=== PATIENT | male | born 1940 | race Caucasian/White ===

== ENCOUNTER 2020-06-09 18:31 | Observation (INO) | payer MEDICARE, SELFPAY ==
[2020-06-09 18:46] VITALS: BP 128/73; PULSE 95; RESP 18; TEMP 35.9; O2SAT 98; BMI 24.4
--- NOTE | 2020-06-09 19:07 | DI.CT.S_ITS ---
PROCEDURE: CT ABDOMEN PELVIS W CON INDICATIONS: Abdominal pain, eval for obstruction TECHNIQUE: After the administration of intravenous contrast, 5 mm thick sections acquired from the diaphragm to the symphysis. 5 mm coronal and sagittal reformats were acquired. For radiation dose reduction, the following was used: automated exposure control, adjustment of mA and/or kV according to patient size. COMPARISON: None. FINDINGS: Image quality: Excellent. ABDOMEN: Lung bases: Lung bases are clear. Heart size is normal. Solid organs: Liver is normal in size and enhancement. Gallbladder has been surgically resected Biliary system is non dilated. Pancreas enhances normally. Spleen is normal in size and enhancement. No adrenal nodules. Kidneys demonstrate normal size and enhancement, without hydronephrosis. Peritoneum and bowel: Colonic bowel loops demonstrate normal wall thickness and caliber. No free fluid or air. Note is made of small bowel dilatation over the mid and lower abdomen/pelvis. The small bowel loops measure up to 3.5 cm in diameter. An exact etiology is not identified. Nodes and vessels: No retroperitoneal or mesenteric adenopathy by size criteria. Aorta and inferior vena cava are normal in size. Miscellaneous: No ventral hernias. PELVIS: Genitourinary: Bladder wall thickness is normal. Miscellaneous: No inguinal hernias or adenopathy. Bones: No suspicious bony lesions. No vertebral body compression fractures. IMPRESSION: Small-bowel restriction pattern, with 3.5 cm dilated small bowel loops over the mid abdomen and pelvis, without etiology identified. Prior cholecystectomy. Postoperative adhesion is a potential etiology of this appearance. No mass or intussusception or acute inflammatory change is found. Dictated by: Justino Godoy M.D. on 06/09/2020 at 20:05 Approved by: Justino Godoy M.D. on 06/09/2020 at 20:07
--- NOTE | 2020-06-09 19:12 | ED_ITS ---
HPI - General Adult General Chief complaint: Abdominal Pain Stated complaint: SEVERE STOMACH PAIN NO BOWEL MOVEMENT 2 DAY Time Seen by Provider: 06/09/20 18:58 Source: patient Mode of arrival: Ambulatory Limitations: no limitations History of Present Illness HPI narrative: 79-year-old male who was sent to the emergency department for concerns of a small-bowel obstruction. Patient has had his prostate removed and also his gallbladder removed in the past. He denies any fevers but has had a couple days of constipation, abdominal distention, abdominal pain and vomiting. He also has a history of migraines. He currently has a headache which he states is consistent with his history of migraines. He has not been able to take his medications because he has been vomiting. Went to his primary doctor today who sent him to the emergency department for evaluation. Related Data Home Medications Medication Instructions Recorded Confirmed VITAMIN D (Vitamin D3) PO QDAY #0 09/16/17 ibuprofen [Advil Liqui-Gel] 200 mg PO PRN #0 09/16/17 levothyroxine [Synthroid] 0.075 mg PO QAM #0 09/16/17 sumatriptan succinate [Imitrex] 25 mg PRN #0 09/16/17 Allergies Allergy/AdvReac Type Severity Reaction Status Date / Time acetaminophen [From PERCOCET] Allergy Unknown migraine Verified 06/09/20 19:25 oxycodone [From PERCOCET] Allergy Unknown migraine Verified 06/09/20 19:25 FOOD COLORINGS Allergy Unknown MIGRAINES. Uncoded 06/09/20 19:25 MSG Allergy Unknown MIGRAINE Uncoded 06/09/20 19:25 Review of Systems Constitutional Constitutional: Denies fever(s) and Reports headache(s) ENT Ears, Nose, Mouth, and Throat: Reports headache(s) Cardiovascular Cardiovascular: Denies chest pain and Denies dyspnea Respiratory Respiratory: Denies dyspnea Gastrointestinal Gastrointestinal: Reports abdominal pain, Reports bloating, Reports constipation, Reports nausea and Reports vomiting Genitourinary Genitourinary: Denies dysuria Genitourinary: Denies dysuria Musculoskeletal Musculoskeletal: Denies arthralgias and Denies myalgias Integumentary/Breasts Skin/Breast: Denies lesions and Denies rash Neurologic Neurologic: Denies behavioral changes and Reports headache(s) Psychiatric Psychiatric: Denies behavioral changes Hematologic/Lymphatic On Anticoagulants: No Allergic/Immunologic Allergic/Immunologic: Denies urticaria Patient History Medical History Migraine Surgical History H/O prostatectomy History of cholecystectomy Social History household members: spouse Smoking Status: Never smoker Smoking Status: Never smoker alcohol intake frequency: 0-2 drinks per day Substance Use Type: does not use Exam Initial Vital Signs Initial Vital Signs: Vital Signs Temperature 96.7 F L 06/09/20 18:46 Pulse Rate 95 H 06/09/20 18:46 Respiratory Rate 18 06/09/20 18:46 Blood Pressure 128/73 06/09/20 18:46 Pulse Oximetry 98 06/09/20 18:46 Const General: cooperative and comfortable Limitations: mental status not altered HENMT Head: normal to inspection and normocephalic Resp Effort & Inspection: normal respiratory effort Auscultation: clear to auscultation bilaterally Cardio Rate: regular rate Rhythm: regular rhythm GI Inspection: distended Palpation: soft, No firm, No rigid and tender (Generalized) Skin Lesions: no lesions Rashes: no rashes Neuro General: patient alert, patient awake and patient oriented x3 Cognition: normal cognition Speech: speech normal Sensory Exam: no sensory deficits noted Extrem General: normal to inspection and capillary refill normal Psych Appearance: grossly normal and well kempt Scores GCS [place] coma scale eye opening: Spontaneous Efren coma scale verbal response: Orientated Efren coma scale motor response: Obey commands [place] coma scale total score: 15 Course Orders Ordered: ED Orders 06/09/20 19:07 CT abdomen pelvis w con Stat 06/09/20 19:15 Complete Blood Count AUTO DIFF Stat Comprehensive Metabolic Panel Stat Lactate (Lactic Acid) Stat Lipase Stat Partial Thromboplastin Time Stat Prothrombin Time INR Stat 06/09/20 20:40 COVID19 Stat 06/09/20 20:43 Consult to General Surgery Urgent 06/10/20 06:00 Complete Blood Count AUTO DIFF Stat Comprehensive Metabolic Panel Stat Lipase Stat Sodium Chloride (Normal Saline 0.9%) 1,000 mls @ 125 mls/hr IV CONT VIVI Last Admin: 06/09/20 21:38 Dose: 125 mls/hr Documented by: KKNOTT Morphine Sulfate (Morphine 2 Mg/Ml Inj) 2 mg IV Q4HR PRN PRN Reason: pain Ondansetron HCl (Ondansetron 4 Mg/2 Ml Inj) 4 mg IV Q4HR PRN PRN Reason: Nausea And Vomiting Sumatriptan Succinate (Sumatriptan 6 Mg/0.5 Ml Vial) 6 mg SUBCUT PRN PRN PRN Reason: Headache Discontinued Medications Sodium Chloride (Normal Saline 0.9%) 1,000 mls @ 1,000 mls/hr IV BOLUS ONE Stop: 06/09/20 20:06 Last Infusion: 06/09/20 21:23 Dose: 0 mls/hr Documented by: Admin: 06/09/20 19:34 Dose: 1,000 mls/hr Documented by: DANIEL Morphine Sulfate (Morphine 2 Mg/Ml Inj) 2 mg IV NOW ONE Stop: 06/09/20 19:12 Last Admin: 06/09/20 19:34 Dose: 2 mg Documented by: DANIEL Ondansetron HCl (Ondansetron 4 Mg/2 Ml Inj) 4 mg IV NOW ONE Stop: 06/09/20 19:30 Last Admin: 06/09/20 19:34 Dose: 4 mg Documented by: DANIEL Sumatriptan Succinate (Sumatriptan 6 Mg/0.5 Ml Vial) 6 mg SUBCUT NOW ONE Stop: 06/09/20 20:39 Last Admin: 06/09/20 20:56 Dose: 6 mg Documented by: DANIEL Vital Signs Vital signs: Vital Signs - 8 hr 06/09/20 18:46 06/09/20 19:50 06/09/20 20:00 Temperature 96.7 F L Pulse Rate 95 H 82 77 Respiratory Rate 18 17 16 Blood Pressure 128/73 135/72 129/73 Pulse Oximetry 98 98 96 06/09/20 20:30 Temperature Pulse Rate 76 Respiratory Rate 16 Blood Pressure 122/68 Pulse Oximetry 97 Medical Decision Making Lab Data Lab results reviewed: Yes I reviewed the patient's lab results. Result diagrams: 06/09/20 19:15 06/09/20 19:15 Labs: Lab Results 06/09/20 06/09/20 06/09/20 Range/Units 19:15 19:15 19:15 WBC 8.4 (4.5-11.0) X10^3/uL RBC 5.29 (4.5-5.9) X10^6/uL Hgb 16.1 (13.5-17.5) g/dL Hct 48.0 (41-53) % MCV 90.8 (80-100) fL MCH 30.4 (26-34) PG MCHC 33.5 (30-36) % RDW 13.7 (11.6-14.8) % Plt Count 264 (150-400) X10^3/uL Neut % (Auto) 83.3 H (50-75) % Lymph % (Auto) 5.1 L (25-40) % [place] % (Auto) 11.2 (3-14) % Eos % (Auto) 0.2 L (2-4) % Baso % (Auto) 0.2 (0-2) % Neut # (Auto) 7000 (3761-5161) /uL Lymph # (Auto) 400 L (2376-6444) /uL [place] # (Auto) 900 (0-900) /uL Eos # (Auto) 0 (0-450) /uL Baso # (Auto) 0 (0-100) /uL PT 11.3 (10.1-12.7) SECONDS INR 1.0 (0.9-1.3) APTT 27 (26.4-36.2) SECONDS Sodium 135 L (137-145) mmol/L Potassium 4.0 (3.4-5.1) mmol/L Chloride 96 L (98-107) mmol/L Carbon Dioxide 34 H (22-32) mmol/L BUN 20 (9-20) mg/dL Creatinine 1.25 (0.66-1.25) mg/dL Estimated GFR 55.6 L (>60) mL/min BUN/Creatinine Ratio 16.0 (6-22) Glucose 130 H (80-110) mg/dL Lactate (0.7-2.1) mmol/L Calcium 10.3 H (8.4-10.2) mg/dL Total Bilirubin 1.0 (0.2-1.3) mg/dL AST 22 (17-59) IU/L ALT 17 (<50) IU/L Alkaline Phosphatase 66 (38-126) U/L Total Protein 7.5 (6.3-8.2) g/dL Albumin 4.3 (3.5-5.0) g/dL Globulin 3.2 (1.7-4.1) g/dL Albumin/Globulin Ratio 1.3 (1.0-2.8) Lipase 67 (23-300) U/L SARS-CoV-2 (PCR) (Negative) 06/09/20 06/09/20 Range/Units 19:15 20:40 WBC (4.5-11.0) X10^3/uL RBC (4.5-5.9) X10^6/uL Hgb (13.5-17.5) g/dL Hct (41-53) % MCV (80-100) fL MCH (26-34) PG MCHC (30-36) % RDW (11.6-14.8) % Plt Count (150-400) X10^3/uL Neut % (Auto) (50-75) % Lymph % (Auto) (25-40) % [place] % (Auto) (3-14) % Eos % (Auto) (2-4) % Baso % (Auto) (0-2) % Neut # (Auto) (4366-1074) /uL Lymph # (Auto) (7843-1490) /uL [place] # (Auto) (0-900) /uL Eos # (Auto) (0-450) /uL Baso # (Auto) (0-100) /uL PT (10.1-12.7) SECONDS INR (0.9-1.3) APTT (26.4-36.2) SECONDS Sodium (137-145) mmol/L Potassium (3.4-5.1) mmol/L Chloride (98-107) mmol/L Carbon Dioxide (22-32) mmol/L BUN (9-20) mg/dL Creatinine (0.66-1.25) mg/dL Estimated GFR (>60) mL/min BUN/Creatinine Ratio (6-22) Glucose (80-110) mg/dL Lactate 1.7 (0.7-2.1) mmol/L Calcium (8.4-10.2) mg/dL Total Bilirubin (0.2-1.3) mg/dL AST (17-59) IU/L ALT (<50) IU/L Alkaline Phosphatase (38-126) U/L Total Protein (6.3-8.2) g/dL Albumin (3.5-5.0) g/dL Globulin (1.7-4.1) g/dL Albumin/Globulin Ratio (1.0-2.8) Lipase (23-300) U/L SARS-CoV-2 (PCR) Negative (Negative) Imaging Data CT scan - abdomen/pelvis: Radiologist's Impression: [address] [id number] Scan ReportSigned Patient: Navarro Riley GMR#: [id number]: [id number]:[id number]/Sex: 79 / MDate of Service: 06/09/20Loc: EDAccession Number: [id number] Procedure: CT abdomen pelvis w con Ordering Provider: Renato Beck D.O. PROCEDURE: CT ABDOMEN PELVIS W CON INDICATIONS: Abdominal pain, eval for obstruction TECHNIQUE: After the administration of intravenous contrast, 5 mm thick sections acquired from the diaphragm to the symphysis. 5 mm coronal and sagittal reformats were acquired. For radiation dose reduction, the following was used: automated exposure control, adjustment of mA and/or kV according to patient size. COMPARISON: None. FINDINGS: Image quality: Excellent. ABDOMEN: Lung bases: Lung bases are clear. Heart size is normal. Solid organs: Liver is normal in size and enhancement. Gallbladder has been surgically resected Biliary system is non dilated. Pancreas enhances normally. Spleen is normal in size and enhancement. No adrenal nodules. Kidneys demonstrate normal size and enhancement, without hydronephrosis. Peritoneum and bowel: Colonic bowel loops demonstrate normal wall thickness and caliber. No free fluid or air. Note is made of small bowel dilatation over the mid and lower abdomen/pelvis. The small bowel loops measure up to 3.5 cm in diameter. An exact etiology is not identified. Nodes and vessels: No retroperitoneal or mesenteric adenopathy by size criteria. Aorta and inferior vena cava are normal in size. Miscellaneous: No ventral hernias. PELVIS: Genitourinary: Bladder wall thickness is normal. Miscellaneous: No inguinal hernias or adenopathy. Bones: No suspicious bony lesions. No vertebral body compression fractures. IMPRESSION: Small-bowel restriction pattern, with 3.5 cm dilated small bowel loops over the mid abdomen and pelvis, without etiology identified. Prior cholecystectomy. Postoperative adhesion is a potential etiology of this appearance. No mass or intussusception or acute inflammatory change is found. Dictated by: Justino Godoy M.D. on 06/09/2020 at 20:05 Approved by: Justino Godoy M.D. on 06/09/2020 at 20:07 [facility] Narrative Medical decision making narrative: CT scan concerning for small bowel obstruction. Patient denied the need for any nausea medication. We will hold on an NG to for now. Will also treat his headache with Imitrex. I did discuss the case with Dr. Lafleur who agrees to admit the patient for further evaluation and treatment. Discussed the diagnosis with the patient and his who is at bedside. They expressed understanding and agreement. Discharge Plan Departure Patient Disposition: Admitted As Inpatient Clinical Impression: SBO (small bowel obstruction) Admit Date/Time: 06/09/20 20:46 Admit Provider: Jhon Lafleur
[2020-06-09 19:18] LABS: Add Manual Diff / Slide Review NO; Basophils Absolute Auto 0 /uL (0-100); Basophils Percent Auto 0.2 % (0-2); Eosinophils Absolute Auto 0 /uL (0-450); Eosinophils Percent Auto 0.2 % (2-4); Hemoglobin 16.1 g/dL (13.5-17.5); Lymphocytes Absolute Auto 400 /uL (1100-4500); Lymphocytes Percent Auto 5.1 % (25-40); Mean Corpuscular HGB Conc 33.5 % (30-36); Mean Corpuscular Hemoglobin 30.4 PG (26-34); Mean Corpuscular Volume 90.8 fL (80-100); Monocytes Absolute Auto 900 /uL (0-900); Monocytes Percent Auto 11.2 % (3-14); Neutrophils Absolute Auto 7000 /uL (1500-7000); Neutrophils Percent Auto 83.3 % (50-75); Platelet Count 264 X10^3/uL (150-400); Red Blood Cell Count 5.29 X10^6/uL (4.5-5.9); Red Cell Distribution Width 13.7 % (11.6-14.8); White Blood Cell Count 8.4 X10^3/uL (4.5-11.0)
[2020-06-09 19:26] LABS: Prothrombin Time 11.3 SECONDS (10.1-12.7)
[2020-06-09 19:29] LABS: PTT Partial Thromboplastin Tim 27 SECONDS (26.4-36.2)
[2020-06-09 19:31] LABS: Alanine Aminotransferase 17 IU/L (<50); Albumin 4.3 g/dL (3.5-5.0); Albumin Globulin Ratio 1.3 (1.0-2.8); Alkaline Phosphatase 66 U/L (38-126); Aspartate Aminotransferase 22 IU/L (17-59); Blood Urea Nitrogen 20 mg/dL (9-20); Calcium 10.3 mg/dL (8.4-10.2); Carbon Dioxide 34 mmol/L (22-32); Chloride 96 mmol/L (98-107); Estimated Glomerular Filt Rate 55.6 mL/min (>60); Globulin 3.2 g/dL (1.7-4.1); Glucose 130 mg/dL (80-110); HEMOLYSIS < 15 (0-50); Lipase 67 U/L (23-300); Sodium 135 mmol/L (137-145); Total Protein 7.5 g/dL (6.3-8.2)
[2020-06-09] MEDS: ONDANSETRON 4 MG/2 ML INJ IV (19:34)
[2020-06-09] MEDS: MORPHINE 2 MG/ML INJ IV (19:34)
[2020-06-09] MEDS: SODIUM CHLORIDE 0.9% 1,000 ML 1000 ML IV (19:34)
[2020-06-09 19:50] VITALS: BP 135/72; PULSE 82; RESP 17; O2SAT 98
[2020-06-09 20:00] VITALS: BP 129/73; PULSE 77; RESP 16; O2SAT 96
[2020-06-09 20:30] VITALS: BP 122/68; PULSE 76; RESP 16; O2SAT 97
[2020-06-09] MEDS: SUMAtriptan 6 MG/0.5 ML VIAL SUBCUT (20:56)
[2020-06-09 20:59] LABS: COVID19 -Nasal RAPID Negative (Negative)
[2020-06-09 21:08] VITALS: BP 128/71; PULSE 79; RESP 16; O2SAT 98
[2020-06-09 21:14] LABS: Lactate (Lactic Acid) 1.7 mmol/L (0.7-2.1)
[2020-06-09 21:30] VITALS: BMI 24.4
[2020-06-09] MEDS: SODIUM CHLORIDE 0.9% 1,000 ML 125 ML IV (21:38)
[2020-06-10] VITALS: BP 133/93; PULSE 92; RESP 16; TEMP 36.7; O2SAT 97
[2020-06-10] MEDS: SUMAtriptan 6 MG/0.5 ML VIAL SUBCUT ×2 (01:45→12:15)
[2020-06-10 05:00] VITALS: BP 112/67; PULSE 79; RESP 16; TEMP 35.9; O2SAT 93
[2020-06-10] MEDS: SODIUM CHLORIDE 0.9% 1,000 ML 125 ML IV (05:02)
--- NOTE | 2020-06-10 05:06 | PC.NURSE ---
Pt reports that his abdominal pain is gone. Pt is requesting food and would like to be able to sip water/ice chips, he was told that this would be requested from his doctor in the AM. Pt is requesting a lipid panel be added on to this morning labs - will pass on to AM RN.
[2020-06-10 05:38] LABS: Add Manual Diff / Slide Review NO; Basophils Absolute Auto 0 /uL (0-100); Basophils Percent Auto 0.4 % (0-2); Eosinophils Absolute Auto 100 /uL (0-450); Eosinophils Percent Auto 0.9 % (2-4); Hematocrit 39.6 % (41-53); Hemoglobin 13.1 g/dL (13.5-17.5); Lymphocytes Absolute Auto 700 /uL (1100-4500); Lymphocytes Percent Auto 12.6 % (25-40); Mean Corpuscular Hemoglobin 30.2 PG (26-34); Mean Corpuscular Volume 91.4 fL (80-100); Monocytes Absolute Auto 700 /uL (0-900); Monocytes Percent Auto 11.4 % (3-14); Neutrophils Absolute Auto 4400 /uL (1500-7000); Neutrophils Percent Auto 74.7 % (50-75); Platelet Count 204 X10^3/uL (150-400); Red Blood Cell Count 4.33 X10^6/uL (4.5-5.9); White Blood Cell Count 5.9 X10^3/uL (4.5-11.0)
[2020-06-10 05:48] LABS: Alanine Aminotransferase 11 IU/L (<50); Albumin 3.4 g/dL (3.5-5.0); Albumin Globulin Ratio 1.5 (1.0-2.8); Alkaline Phosphatase 48 U/L (38-126); Aspartate Aminotransferase 18 IU/L (17-59); BUN Creatinine Ratio 17.7 (6-22); Bilirubin Total 0.9 mg/dL (0.2-1.3); Blood Urea Nitrogen 20 mg/dL (9-20); Calcium 8.7 mg/dL (8.4-10.2); Carbon Dioxide 32 mmol/L (22-32); Chloride 104 mmol/L (98-107); Estimated Glomerular Filt Rate > 60.0 mL/min (>60); Globulin 2.3 g/dL (1.7-4.1); Glucose 111 mg/dL (80-110); HEMOLYSIS < 15 (0-50); Lipase 100 U/L (23-300); Potassium 4.3 mmol/L (3.4-5.1); Sodium 137 mmol/L (137-145); Total Protein 5.7 g/dL (6.3-8.2)
[2020-06-10 07:50] VITALS: BP 109/65; PULSE 74; RESP 18; TEMP 36.3; O2SAT 92
[2020-06-10 08:31] VITALS: BP 92/52; PULSE 78; RESP 16; TEMP 36.9; O2SAT 93
--- NOTE | 2020-06-10 08:32 | DI.RAD.S_ITS ---
PROCEDURE: FL SMALL BOWEL FOLLOW THROUGH INDICATIONS: small bowel obstruction. Perform with gastrografin COMPARISON: None. FINDINGS: KUB: Preprocedural purchaser automotive parts film demonstrates a normal bowel gas pattern. No suspicious abdominal calcifications. Visualized solid organ contours appear normal. No suspicious bony abnormalities. Scattered surgical clips. Small bowel: There is normal transit time of barium through the small bowel. Small bowel loops are diffusely prominent. Mucosal folds are smooth and of normal thickness. No strictures, intraluminal masses, or extrinsic mass effects are noted. Contrast reaches the rectal vault at the 1 hour 30 minutes time point. IMPRESSION: Normal transit of oral contrast material reaching the rectal vault at the 1 hour 30 minutes time point. Dictated by: Kvng Fritz M.D. on 06/10/2020 at 12:08 Approved by: Kvng Fritz M.D. on 06/10/2020 at 12:11
[2020-06-10] MEDS: ENOXAPARIN 40 MG/0.4 ML SYRINGE SUBCUT (09:06)
[2020-06-10] MEDS: ONDANSETRON 4 MG/2 ML INJ IV (09:06)
--- NOTE | 2020-06-10 09:42 | PC.NURSE ---
Assess- Patient is a&ox3, she states that she is having 6/10 pain, given 10mg of po oxycodone and seems to be helpful. Incision and dressing cdi. Patient denies any numbness or tingling of the extremities and is tolerating her breakfast well. She states that she mostly has pain when positioning and moving around in bed. Resting now.
--- NOTE | 2020-06-10 09:57 | P.HP_ITS ---
History of Present Illness History of Present Illness Date Patient Seen: 06/10/20 Time Patient Seen: 09:57 Chief complaint: SEVERE STOMACH PAIN NO BOWEL MOVEMENT 2 DAY Narrative: 79-year-old man seen in consultation for a small-bowel obstruction. History of prior abdominal surgery including cholecystectomy and prostatectomy. Over the past 2 days he has had multiple episodes of nausea and emesis associated with abdominal distension and lack of bowel movement. He is passing a very small amount of flatus. No prior previous episodes. No emesis since admission [address] abdomen pelvis performed with IV contrast only demonstrates small bowel dilation no free air. Patient History Medical History Hypothyroidism Migraine Surgical History H/O prostatectomy History of cholecystectomy Family & Social History Social History: household members spouse Safety & Behavioral: Feels Safe in Current Yes Environment Been Physically Hurt or No Threatened By a Person Suicidal Ideation Description None Suicide Plan Description No Plan Tobacco & Substance use: Smoking Status Never smoker alcohol intake frequency 0-2 drinks per day Substance Use Type does not use Meds Home Medications and Allergies Home Medications Medication Instructions Recorded Confirmed Type VITAMIN D (Vitamin D3) PO QDAY #0 09/16/17 History ibuprofen [Advil Liqui-Gel] 200 mg PO PRN #0 09/16/17 History levothyroxine [Synthroid] 0.075 mg PO QAM #0 09/16/17 History sumatriptan succinate [Imitrex] 25 mg PRN #0 09/16/17 History Allergies Allergy/AdvReac Type Severity Reaction Status Date / Time acetaminophen [From PERCOCET] Allergy Unknown migraine Verified 06/09/20 19:25 oxycodone [From PERCOCET] Allergy Unknown migraine Verified 06/09/20 19:25 FOOD COLORINGS Allergy Unknown MIGRAINES. Uncoded 06/09/20 19:25 MSG Allergy Unknown MIGRAINE Uncoded 06/09/20 19:25 Review of Systems Review of Systems ROS: Yes All systems reviewed with the patient and are negative except as otherwise documented Exam Vital Signs (past 8 hours): - 06/10/20 05:00 06/10/20 07:50 Temperature 96.6 F L 97.3 F L Pulse Rate 79 74 Respiratory Rate 16 18 Blood Pressure 112/67 109/65 Pulse Oximetry 93 92 Oxygen Delivery Method Room Air Oxygen Flow Rate 0 Narrative Exam Narrative: General-no acute distress, well nourished elderly man HEENT-moist mucous membranes, no scleral icterus Neck-supple, no lymphadenopathy Chest- non labored respirations, clear to auscultation bilaterally Cardiac-regular rate no peripheral edema Abdomen-soft, mildly distended lower midline scar Extremities-warm, well perfused Neurological-alert and oriented, no focal deficits Objective Labs Result Diagrams: 06/10/20 05:02 06/10/20 05:02 Labs: Laboratory Results - last 24 hr 06/09/20 06/09/20 06/09/20 19:15 19:15 19:15 WBC 8.4 RBC 5.29 Hgb 16.1 Hct 48.0 MCV 90.8 MCH 30.4 MCHC 33.5 RDW 13.7 Plt Count 264 Neut % (Auto) 83.3 H Lymph % (Auto) 5.1 L [place] % (Auto) 11.2 Eos % (Auto) 0.2 L Baso % (Auto) 0.2 Neut # (Auto) 7000 Lymph # (Auto) 400 L [place] # (Auto) 900 Eos # (Auto) 0 Baso # (Auto) 0 PT 11.3 INR 1.0 APTT 27 Sodium 135 L Potassium 4.0 Chloride 96 L Carbon Dioxide 34 H BUN 20 Creatinine 1.25 Estimated GFR 55.6 L BUN/Creatinine Ratio 16.0 Glucose 130 H Lactate Calcium 10.3 H Total Bilirubin 1.0 AST 22 ALT 17 Alkaline Phosphatase 66 Total Protein 7.5 Albumin 4.3 Globulin 3.2 Albumin/Globulin Ratio 1.3 Lipase 67 SARS-CoV-2 (PCR) 06/09/20 06/09/20 06/10/20 19:15 20:40 05:02 WBC 5.9 RBC 4.33 L Hgb 13.1 L Hct 39.6 L MCV 91.4 MCH 30.2 MCHC 33.0 RDW 14.0 Plt Count 204 Neut % (Auto) 74.7 Lymph % (Auto) 12.6 L [place] % (Auto) 11.4 Eos % (Auto) 0.9 L Baso % (Auto) 0.4 Neut # (Auto) 4400 Lymph # (Auto) 700 L [place] # (Auto) 700 Eos # (Auto) 100 Baso # (Auto) 0 PT INR APTT Sodium Potassium Chloride Carbon Dioxide BUN Creatinine Estimated GFR BUN/Creatinine Ratio Glucose Lactate 1.7 Calcium Total Bilirubin AST ALT Alkaline Phosphatase Total Protein Albumin Globulin Albumin/Globulin Ratio Lipase SARS-CoV-2 (PCR) Negative 06/10/20 05:02 WBC RBC Hgb Hct MCV MCH MCHC RDW Plt Count Neut % (Auto) Lymph % (Auto) [place] % (Auto) Eos % (Auto) Baso % (Auto) Neut # (Auto) Lymph # (Auto) [place] # (Auto) Eos # (Auto) Baso # (Auto) PT INR APTT Sodium 137 Potassium 4.3 Chloride 104 Carbon Dioxide 32 BUN 20 Creatinine 1.13 Estimated GFR > 60.0 BUN/Creatinine Ratio 17.7 Glucose 111 H Lactate Calcium 8.7 Total Bilirubin 0.9 AST 18 ALT 11 Alkaline Phosphatase 48 Total Protein 5.7 L Albumin 3.4 L Globulin 2.3 Albumin/Globulin Ratio 1.5 Lipase 100 SARS-CoV-2 (PCR) Assessment & Plan Assessment and plan (1) SBO (small bowel obstruction): Status: Acute Assessment & Plan narrative: 79-year-old man prior abdominal surgery admitted for a small-bowel obstruction. I reviewed his CT abdomen pelvis performed with IV contrast only demonstrates dilation of small bowel loops unable to discern if there is a transition point. I discussed with the patient that he most likely has an adhesive small bowel obstruction and these are generally managed conservatively initially. He has no indications at this time for surgical intervention. -NPO IV fluids -NG tube if persistent emesis -small-bowel follow-through -SCDs and Lovenox for VTE prophylaxis Quality VTE Deep Vein Thrombosis/Pulmonary Embolism Present on Admission: No
--- NOTE | 2020-06-10 11:59 | PC.NURSE ---
Patient denies nausea and states that he is in minimal pain. Given contrast for Small Bowel follow through and he has now had about 3 loose bowel movements with some small pieces of stool in them. He complains of a migraine, will offer him some medication. in room and visiting. Patients abdomen is slightly distended and bowel tones are hypoactive.
[2020-06-10 12:31] VITALS: BP 116/66; PULSE 72; RESP 15; TEMP 36.4; O2SAT 93
--- NOTE | 2020-06-10 13:54 | CM.DANOTE ---
DCP/Assessment: Reviewed chart. Patient is a 79yr old male admitted to [facility] with probable SBO. PCP is Dr. Jonatan Bird. Primary payor is 1)Medicare 2)[facility]. Met with patient explained CM/SW role. Patient in bed resting comfortably at time of visit. Patient's spouse/Angélica at bedside. Patient currently resides on [facility]. Patient and spouse report that patient I in ADL's. Current plan is for them to d/c home when medically stable. Patient will need priority boarding to return to [facility]. P: Home when stable. SANDOR Eden Discharge Planning/Care Management CM Discharge Assessment Start: 06/10/20 13:43 Freq: Status: Active Protocol: Document 06/10/20 13:44 KJS (Rec: 06/10/20 13:54 KJS [id number]) Discharge Planning Assessment Assigned [employer] SANDOR Eden Contact Information Angélica Riley (spouse) ph# [phone] Advance Directives? Yes History Provided By Patient,Significant Other, Medical Record Prior Living Arrangements House Household Members spouse Type of transporation used prior to Drives own vehicle admit Independent with ADL's Yes Is patient alert and oriented? Yes Caregiver for Another No Barriers to Discharge No Discharge Plan Home Transportation Arrangement Spouse to provide transport. Priority boarding pass to be provided. Referrals Initiated None needed Whiteboard Updated in Patient Room with Yes name and ext. # of [employer] Operator Review Status In Process Next Review Type Continued Stay Review
== END 2020-06-10 14:18 | disposition home or self-care (01) ==
LOC: ED 20:43 → AC 21:01
PROVIDERS: Admitting Provider Surgery; Emergency Provider Emergency Medicine; Family Provider Family Medicine; PCP Family Medicine; Referring Provider Emergency Medicine; Visit Provider Surgery
DX: K56.50 Intestinal adhesions [bands], unspecified as to partial versus complete obstruction (principal); G43.909 Migraine, unspecified, not intractable, without status migrainosus; E03.9 Hypothyroidism, unspecified; Z20.822 Contact with and (suspected) exposure to COVID-19
CPT/HCPCS: 36415; 74177; 74250; 80053; 83605; 83690; 85025; 85610; 85730; 87635; 96372; 96374; 96375; 96376; 99218; 99282; 99284; C9803; G0378; J1650; J2270; J2405; J3030; Q9967

== ENCOUNTER → 2023-01-18 15:54 | Outpatient (CLI) | payer MEDICARE, SELFPAY ==
--- NOTE | 2023-01-18 | DI.RAD.S_ITS ---
PROCEDURE: XR ANKLE RT MIN 3V INDICATIONS: PAIN IN ANKLE TECHNIQUE: 3 views of the ankle were acquired. COMPARISON: None. FINDINGS: Bones: No fractures or dislocations. Ankle mortise is normally aligned. No suspicious bony lesions. Posterior calcaneal enthesophyte. Soft tissues: No tibiotalar joint effusion. Achilles tendon appears normal. IMPRESSION: No acute osseous abnormality. If pain persists with conservative management, consider repeat x-ray in 10-14 days or cross-sectional imaging. Dictated by: Son Lau M.D. on 01/19/2023 at 9:04 Approved by: Son Lau M.D. on 01/19/2023 at 9:07
== END ==
PROVIDERS: Family Provider Family Medicine; PCP Family Medicine; Referring Provider Family Medicine; Visit Provider Family Medicine
DX: M77.31 Calcaneal spur, right foot (principal); M25.571 Pain in right ankle and joints of right foot
CPT/HCPCS: 73610